=== PATIENT | female | born 1965 | race Caucasian/White ===

== ENCOUNTER 2016-10-25 07:47 | Outpatient (CLI) | payer OTHER ==
--- NOTE | 2016-10-25 10:03 | DIAGNOSTIC IMAGING REPORT ---
PROCEDURE: US ABDOMEN ULTRASOUND-COMPLETE INDICATION: BULGE UPPER ABD TECHNIQUE: Courtney scale images of the abdomen were obtained. COMPARISON: None. FINDINGS: There is no evidence of an abdominal fascial defect or soft tissue mass. No fluid collection. IMPRESSION: 1. No evidence of a ventral hernia.
== END 2016-10-25 23:00 ==
LOC: US SRH 07:47
DX: R19.07 Generalized intra-abdominal and pelvic swelling, mass and lump (principal)

== ENCOUNTER 2016-11-03 07:46 | Outpatient (CLI) | payer OTHER ==
--- NOTE | 2016-11-03 09:03 | DIAGNOSTIC IMAGING REPORT ---
PROCEDURE: US ABDOMEN ULTRASOUND-COMPLETE INDICATION: RUQ ABD PAIN TECHNIQUE: Courtney scale and color Doppler sonographic images of the abdomen were obtained. COMPARISON: Abdominal ultrasound 10/25/2016. FINDINGS: Normal gallbladder without gallstones. Normal CBD measures 4 mm. Negative Luke's sign. Liver measures 15.3 cm with an 8 mm right hepatic lobe simple cyst. Pancreas is unremarkable. IVC is patent. Normal hepatopetal flow. Normal right kidney measures 10.9 cm. IMPRESSION: 1. Normal gallbladder 2. 8 mm right hepatic cyst
== END 2016-11-03 23:00 ==
LOC: US SRH 07:46
DX: R10.11 Right upper quadrant pain (principal); K76.89 Other specified diseases of liver